=== PATIENT | male | born 1965 | race Caucasian/White ===

== ENCOUNTER 2025-10-17 10:58 | Emergency (ER) | payer OTHER | END 2025-10-17 13:12 | disposition home or self-care (01) | LOC: MW.ED 10:58 | DX: S09.90XA Unspecified injury of head, initial encounter (principal); M25.561 Pain in right knee; Z75.3 Unavailability and inaccessibility of health-care facilities; Z79.82 Long term (current) use of aspirin; Z79.899 Other long term (current) drug therapy; W01.198A Fall on same level from slipping, tripping and stumbling with subsequent striking against other object, initial encounter | CPT/HCPCS: 70450; 72125; 73562; 99284; A9270 ==

== ENCOUNTER 2025-10-19 09:58 | Emergency (ER) | payer OTHER ==
[2025-10-19] MEDS: Acetaminophen/oxyCODONE 325-5 MG Tab PO ONE (10:39)
[2025-10-19] MEDS: Ketorolac 30 MG/ML SDV IM STA (10:48)
== END 2025-10-19 12:39 | disposition home or self-care (01) ==
LOC: MW.ED 09:58
DX: M54.6 Pain in thoracic spine (principal); M54.50 Low back pain, unspecified; E78.00 Pure hypercholesterolemia, unspecified; Z75.3 Unavailability and inaccessibility of health-care facilities; Z88.8 Allergy status to other drugs, medicaments and biological substances; Z79.82 Long term (current) use of aspirin; Z79.899 Other long term (current) drug therapy
CPT/HCPCS: 71046; 74176; 93005; 96372; 99284; A9270; J1885; 93010